=== PATIENT | male | born 1950 | race Caucasian/White ===

== ENCOUNTER 2018-08-15 16:14 | Emergency (ER) | payer MEDICARE, OTHER ==
[~2018-08-15] VITALS: Ht 172.7 cm; Wt 91.0 kg
[~2018-08-15 16:14] MED LIST: ACET-1008 PO; AMOX-580 PO; ASPI-611 PO; CHLO25TA11 PO; CHOL100046 PO; INSU100V9 SQ; IPRA4AER IH; LISI10TA4 PO; OMEG1CAP13 PO; OXYC-150 PO; ROSU20TA PO; TRAZ-219 PO; alb
[2018-08-15 17:09] LABS: ALANINE AMINOTRANSFERASE 32 U/L (12-78); ALBUMIN 3.1 G/DL (3.4-5.0); ALBUMIN/GLOBULIN RATIO 0.8 (1.1-1.5); ALKALINE PHOSPHATASE 103 IU/L (46-116); ANION GAP 8 (8-16); ASPARTATE AMINO TRANSFERASE 24 U/L (10-37); BASOPHILS % (AUTO) 0 % (0-1); BILIRUBIN,TOTAL 1.7 MG/DL (0.1-1.0); BLOOD UREA NITROGEN 17 MG/DL (7-18); BUN/CREATININE RATIO 12.8 (5.4-32.0); CALCIUM 8.3 MG/DL (8.5-10.1); CHLORIDE 104 MMOL/L (99-107); CREATININE 1.33 MG/DL (0.60-1.10); EOSINOPHILS # (AUTO) 1.5 X10'3 (0-0.9); EOSINOPHILS % (AUTO) 12.9 % (0-6); GLUCOSE 277 MG/DL (70-104); HEMATOCRIT 48.8 % (42.0-52.0); HEMOGLOBIN 16.5 g/dl (14.0-17.9); LYMPHOCYTES # (AUTO) 2.7 X10'3 (1.1-4.8); LYMPHOCYTES % (AUTO) 22.8 % (21-51); MEAN CORPUSCULAR HEMOGLOBIN 32.4 PG (27.0-31.0); MEAN CORPUSCULAR HGB CONC 33.8 % (33.0-36.5); MEAN CORPUSCULAR VOLUME 95.9 FL (78-98); MEAN PLATELET VOLUME 8.5 FL (7.4-10.4); MONOCYTES # (AUTO) 0.6 X10'3 (0-0.9); MONOCYTES % (AUTO) 4.8 % (2-12); NEUTROPHILS % (AUTO) 59.5 % (42-75); PLATELET COUNT 180 X10'3 (140-440); POTASSIUM 5.1 MMOL/L (3.5-5.1); RED BLOOD COUNT 5.08 X10'6 (4.70-6.10); SODIUM 141 MMOL/L (135-145); TOTAL CARBON DIOXIDE 29.1 MMOL/L (24-32); TOTAL PROTEIN 6.9 G/DL (6.4-8.2); WHITE BLOOD COUNT 11.8 X10'3 (4.5-11.0); eGFR 53 ML/MIN
[2018-08-15 17:22] LABS: PROTHROMBIN TIME 10.7 SECONDS (9.0-12.0)
[2018-08-15 18:58] LABS: CLARITY,URINE CLEAR (Clear); COLOR,URINE YELLOW (Yellow); GLUCOSE, URINE 250 mg/dl (Neg); KETONES,URINE NEGATIVE (Neg); LEUKOCYTE ESTERASE ,URINE NEGATIVE (Neg); NITRITES, URINE NEGATIVE (Neg); OCCULT BLOOD,URINE NEGATIVE (Neg); PH,URINE 5.5 (4.8-8.0); PROTEIN,URINE TRACE mg/dl (Neg); UROBILINOGEN,URINE 0.2 E.U/dL (0.2-1.0)
[2018-08-15 19:19] LABS: UA COLLECTION TYPE CLN CATCH MIDSTREAM
[2018-08-15 19:21] LABS: BACTERIA,URINE FEW /HPF (Neg); MUCUS STRANDS FEW /LPF (Neg); RBC,URINE 0-2 /HPF (0-2); SQUAMOUS EPITHELIAL CELL,UR FEW /LPF (FEW); WBC,URINE 0-4 /HPF (0-4)
[2018-08-15] MEDS ORDERED: ONDA8TAB6 PO (20:26)
[2018-08-15] MEDS ORDERED: OMEP20CA10 PO (20:32)
[2018-08-15] MEDS ORDERED: ondansetron/PF 4mg/2ml inj IV ONE (20:35)
[2018-08-15 20:44] VITALS: BP 131/79
== END 2018-08-15 20:48 | disposition home or self-care (01) ==
LOC: ER 16:15
DX: R10.13 Epigastric pain (principal); R11.2 Nausea with vomiting, unspecified; I25.10 Atherosclerotic heart disease of native coronary artery without angina pectoris; I10 Essential (primary) hypertension; J44.9 Chronic obstructive pulmonary disease, unspecified; E11.9 Type 2 diabetes mellitus without complications; F32.9 Major depressive disorder, single episode, unspecified; E78.00 Pure hypercholesterolemia, unspecified; G47.30 Sleep apnea, unspecified; G89.29 Other chronic pain; Z95.1 Presence of aortocoronary bypass graft; Z88.6 Allergy status to analgesic agent; Z79.82 Long term (current) use of aspirin; Z79.01 Long term (current) use of anticoagulants; Z79.899 Other long term (current) drug therapy
CPT/HCPCS: 36415; 76700; 80053; 81001; 85025; 85610; 96374; 99285; J2405

== ENCOUNTER 2020-04-05 20:53 | Emergency (ER) | payer OTHER, MEDICARE ==
[~2020-04-05] VITALS: Ht 172.7 cm; Wt 85.0 kg
[~2020-04-05 20:53] MED LIST changes: +OMEP20CA15 PO; +ONDA8TAB6 PO; -ROSU20TA PO; +ROSU20TA2 PO; -TRAZ-219 PO; +TRAZ-256 PO
[2020-04-05 21:02] VITALS: BP 143/81
[2020-04-05 21:21] LABS: BASOPHILS # (AUTO) 0.1 X10'3 (0-0.2); MONOCYTES # (AUTO) 0.7 X10'3 (0-0.9)
[2020-04-05 21:23] LABS: BASOPHILS % (AUTO) 0.5 % (0-1); EOSINOPHILS # (AUTO) 1.1 X10'3 (0-0.9); EOSINOPHILS % (AUTO) 7.4 % (0-6); HEMATOCRIT 48.5 % (42.0-52.0); HEMOGLOBIN 16.2 g/dl (14.0-17.9); LYMPHOCYTES # (AUTO) 3.2 X10'3 (1.1-4.8); LYMPHOCYTES % (AUTO) 22.1 % (21-51); MEAN CORPUSCULAR HEMOGLOBIN 32.4 PG (27.0-31.0); MEAN CORPUSCULAR HGB CONC 33.3 g/dL (33.0-36.5); MEAN CORPUSCULAR VOLUME 97.4 FL (78-98); MEAN PLATELET VOLUME 8.8 FL (7.4-10.4); MONOCYTES % (AUTO) 4.8 % (2-12); NEUTROPHILS # (AUTO) 9.4 X10'3 (1.8-7.7); NEUTROPHILS % (AUTO) 65.2 % (42-75); PLATELET COUNT 167 X10'3 (140-440); RED BLOOD COUNT 4.98 X10'6 (4.70-6.10); RED CELL DISTRIBUTION WIDTH 13.4 % (11.5-14.5); WHITE BLOOD COUNT 14.5 X10'3 (4.5-11.0)
[2020-04-05 21:40] LABS: ALANINE AMINOTRANSFERASE 31 U/L (12-78); ALBUMIN 3.2 G/DL (3.4-5.0); ALBUMIN/GLOBULIN RATIO 0.8 (1.1-1.5); ALKALINE PHOSPHATASE 101 IU/L (46-116); ANION GAP 8 (8-16); ASPARTATE AMINO TRANSFERASE 26 U/L (10-37); BILIRUBIN,TOTAL 1.2 MG/DL (0.1-1.0); BLOOD UREA NITROGEN 14 MG/DL (7-18); BUN/CREATININE RATIO 10.3 (5.4-32.0); CALCIUM 8.8 MG/DL (8.5-10.1); CHLORIDE 110 MMOL/L (99-107); CREATININE 1.36 MG/DL (0.60-1.10); GLUCOSE 170 MG/DL (70-104); LIPASE 102 U/L (73-393); POTASSIUM 4.5 MMOL/L (3.5-5.1); SODIUM 144 MMOL/L (135-145); TOTAL CARBON DIOXIDE 25.9 MMOL/L (24-32); TOTAL PROTEIN 7.3 G/DL (6.4-8.2); eGFR 52 ML/MIN
[2020-04-05 21:43] LABS: CLARITY,URINE CLEAR (Clear); COLOR,URINE YELLOW (Yellow); GLUCOSE, URINE >=1000 mg/dl (Neg); KETONES,URINE NEGATIVE (Neg); LEUKOCYTE ESTERASE ,URINE NEGATIVE (Neg); NITRITES, URINE NEGATIVE (Neg); OCCULT BLOOD,URINE NEGATIVE (Neg); PROTEIN,URINE NEGATIVE (Neg); UROBILINOGEN,URINE 0.2 E.U/dL (0.2-1.0)
[2020-04-05 21:53] LABS: UA COLLECTION TYPE CLN CATCH MIDSTREAM
[2020-04-05 21:54] LABS: BACTERIA,URINE NONE SEEN /HPF (Neg); RBC,URINE NONE SEEN /HPF (0-2); SQUAMOUS EPITHELIAL CELL,UR NONE SEEN /LPF (FEW); WBC,URINE NONE SEEN /HPF (0-4)
[2020-04-05] MEDS ORDERED: piperacillin/tazo 3.375gm/50ml 50 ML IV ONE (22:10)
[2020-04-05] MEDS ORDERED: fentaNYL/PF 50MCG/1 ML 2ML syringe IV ONE (22:10)
[2020-04-05] MEDS ORDERED: normal saline 1000ML IV soln IVB ONE (22:10)
[2020-04-05] MEDS ORDERED: ondansetron/PF 4mg/2ml inj IV ONE (22:10)
--- NOTE | 2020-04-05 22:16 | NUR ---
pt going to CT
[2020-04-05] MEDS ORDERED: METR-159 PO (23:07)
[2020-04-05] MEDS ORDERED: ONDA4TAB12 PO (23:07)
[2020-04-05] MEDS ORDERED: metoclopramide 5 mg/ml inj IV ONE (23:50)
== END 2020-04-05 23:35 | disposition home or self-care (01) ==
LOC: ER 20:54
DX: R10.30 Lower abdominal pain, unspecified (principal); R11.2 Nausea with vomiting, unspecified; R19.7 Diarrhea, unspecified; I25.10 Atherosclerotic heart disease of native coronary artery without angina pectoris; E78.00 Pure hypercholesterolemia, unspecified; I10 Essential (primary) hypertension; J44.9 Chronic obstructive pulmonary disease, unspecified; G47.30 Sleep apnea, unspecified; E11.9 Type 2 diabetes mellitus without complications; G89.29 Other chronic pain; F32.9 Major depressive disorder, single episode, unspecified; F17.210 Nicotine dependence, cigarettes, uncomplicated; Z95.1 Presence of aortocoronary bypass graft; Z98.890 Other specified postprocedural states; Z88.5 Allergy status to narcotic agent; Z79.82 Long term (current) use of aspirin; Z79.4 Long term (current) use of insulin; Z79.899 Other long term (current) drug therapy
CPT/HCPCS: 36415; 74176; 80053; 81001; 83605; 83690; 85025; 96365; 96375; 99284; J2405; J2543; J3010; J7030

== ENCOUNTER 2020-10-16 10:37 | Day surgery (SDC) | payer MEDICARE, OTHER ==
[~2020-10-16] VITALS: Ht 172.7 cm; Wt 88.0 kg
[2020-10-16] VITALS (8 sets, daily range): BP systolic 116–167; BP diastolic 66–91
[~2020-10-16 10:37] MED LIST changes: +ONDA4TAB12 PO
[2020-10-16] MEDS ORDERED: CLOP75TA15 PO (11:18)
[2020-10-16] MEDS ORDERED: normal saline 1000ml 1,000 ML IV SCH ×2 (11:35→16:55)
[2020-10-16 11:51] LABS: BASOPHILS % (AUTO) 0.4 % (0-1); EOSINOPHILS # (AUTO) 0.2 X10'3 (0-0.9); EOSINOPHILS % (AUTO) 1.6 % (0-6); HEMATOCRIT 42.5 % (42.0-52.0); HEMOGLOBIN 14.7 g/dl (14.0-17.9); LYMPHOCYTES # (AUTO) 2.6 X10'3 (1.1-4.8); MEAN CORPUSCULAR HEMOGLOBIN 33.1 PG (27.0-31.0); MEAN CORPUSCULAR HGB CONC 34.7 g/dL (33.0-36.5); MEAN CORPUSCULAR VOLUME 95.4 FL (78-98); MEAN PLATELET VOLUME 7.8 FL (7.4-10.4); MONOCYTES # (AUTO) 0.6 X10'3 (0-0.9); MONOCYTES % (AUTO) 5.3 % (2-12); NEUTROPHILS # (AUTO) 7.1 X10'3 (1.8-7.7); NEUTROPHILS % (AUTO) 67.7 % (42-75); PLATELET COUNT 217 X10'3 (140-440); RED BLOOD COUNT 4.45 X10'6 (4.70-6.10); WHITE BLOOD COUNT 10.5 X10'3 (4.5-11.0)
[2020-10-16 11:52] LABS: ALBUMIN 3.2 G/DL (3.4-5.0); ANION GAP 7 (8-16); BLOOD UREA NITROGEN 21 MG/DL (7-18); BUN/CREATININE RATIO 15.1 (5.4-32.0); CALCIUM 9.3 MG/DL (8.5-10.1); CHLORIDE 102 MMOL/L (99-107); CREATININE 1.39 MG/DL (0.60-1.10); GLUCOSE 368 MG/DL (70-104); POTASSIUM 4.8 MMOL/L (3.5-5.1); SODIUM 138 MMOL/L (135-145); TOTAL CARBON DIOXIDE 29.2 MMOL/L (24-32); eGFR 51 ML/MIN
[2020-10-16 11:59] LABS: PARTIAL THROMBOPLASTIN TIME 28 SECONDS (22-32)
[2020-10-16] MEDS ORDERED: fentaNYL/PF 50MCG/1 ML 2ML syringe ONE ×2 (14:26→16:25)
[2020-10-16] MEDS ORDERED: heparin 1,000 UNITS/NS 500ml 500 ML ONE ×2 (14:26→15:43)
[2020-10-16] MEDS ORDERED: LIDOcaine 1%/PF 5ML 10 MG/ML VIAL ONE (14:26)
[2020-10-16] MEDS ORDERED: midazolam 2 mg/2 ml injection ONE ×3 (14:26→16:24)
[2020-10-16] MEDS ORDERED: iohexol 300mg/ml 100ml inj. ONE ×2 (14:26→15:43)
[2020-10-16] MEDS ORDERED: heparin 1,000unit/ml 10ml vial 10 ML ONE (15:20)
== END 2020-10-16 19:50 | disposition home or self-care (01) ==
LOC: SSTAY O 10:37
PROVIDERS: ATTEND Radiology Vascular & Interventional Radiology
DX: I70.213 Atherosclerosis of native arteries of extremities with intermittent claudication, bilateral legs (principal); M79.605 Pain in left leg; M79.604 Pain in right leg; Z79.899 Other long term (current) drug therapy; Z79.01 Long term (current) use of anticoagulants
CPT/HCPCS: 36246; 36415; 75710; 76937; 80048; 82948; 85025; 85347; 85610; 85730; 87635; C1760; C1769; C1887; C1894; C9803; G0269; J1644; J2250; J3010; Q9967; 99152; 99153; A6213

== ENCOUNTER 2020-10-26 09:31 | Emergency (ER) | payer OTHER, MEDICARE ==
[~2020-10-26] VITALS: Ht 172.7 cm; Wt 88.2 kg
[~2020-10-26 09:31] MED LIST changes: -ACET-1008 PO; -AMOX-580 PO; -ASPI-611 PO; -CHLO25TA11 PO; +CLOP75TA15 PO; -LISI10TA4 PO; -OMEP20CA15 PO; -ONDA4TAB12 PO; -ONDA8TAB6 PO; -TRAZ-256 PO; -alb
[2020-10-26] MEDS ORDERED: TETanus/Pertussis (Acell)/Diphther VAC/PF (Tdap-Adult) 0.5ml syringe IMVAC ONE (10:25)
[2020-10-26 10:54] LABS: BASOPHILS # (AUTO) 0.1 X10'3 (0-0.2); BASOPHILS % (AUTO) 0.4 % (0-1); EOSINOPHILS # (AUTO) 0.2 X10'3 (0-0.9); EOSINOPHILS % (AUTO) 1.1 % (0-6); HEMATOCRIT 39.6 % (42.0-52.0); HEMOGLOBIN 13.5 g/dl (14.0-17.9); LYMPHOCYTES # (AUTO) 2.2 X10'3 (1.1-4.8); LYMPHOCYTES % (AUTO) 15.6 % (21-51); MEAN CORPUSCULAR HEMOGLOBIN 32.3 PG (27.0-31.0); MEAN PLATELET VOLUME 7.5 FL (7.4-10.4); MONOCYTES # (AUTO) 0.6 X10'3 (0-0.9); MONOCYTES % (AUTO) 4.4 % (2-12); NEUTROPHILS % (AUTO) 78.5 % (42-75); PLATELET COUNT 342 X10'3 (140-440); RED BLOOD COUNT 4.17 X10'6 (4.70-6.10); RED CELL DISTRIBUTION WIDTH 13.3 % (11.5-14.5)
[2020-10-26 11:03] LABS: ALANINE AMINOTRANSFERASE 25 U/L (12-78); ALBUMIN/GLOBULIN RATIO 0.6 (1.1-1.5); ALKALINE PHOSPHATASE 104 IU/L (46-116); ANION GAP 9 (8-16); ASPARTATE AMINO TRANSFERASE 18 U/L (10-37); BILIRUBIN,TOTAL 0.9 MG/DL (0.1-1.0); BLOOD UREA NITROGEN 15 MG/DL (7-18); CALCIUM 9.5 MG/DL (8.5-10.1); CHLORIDE 102 MMOL/L (99-107); CREATININE 1.25 MG/DL (0.60-1.10); GLUCOSE 202 MG/DL (70-104); POTASSIUM 5.5 MMOL/L (3.5-5.1); SODIUM 139 MMOL/L (135-145); TOTAL CARBON DIOXIDE 27.6 MMOL/L (24-32); TOTAL PROTEIN 7.9 G/DL (6.4-8.2); eGFR 57 ML/MIN
[2020-10-26] MEDS ORDERED: iohexol 350MG/ML 100ml bottle IV ONE (11:35)
[2020-10-26] MEDS ORDERED: oxyCODONE/APAP 5-325mg tablet PO ONE (14:35)
[2020-10-26 15:00] VITALS: BP 156/108
[2020-10-26] MEDS ORDERED: HYDR-4383 PO (15:54)
[2020-10-26] MEDS ORDERED: ondansetron 4mg rapidly disintigrating tab PO ONE (16:05)
== END 2020-10-26 16:34 | disposition home or self-care (01) ==
LOC: ER 09:31
DX: M79.675 Pain in left toe(s) (principal); I25.10 Atherosclerotic heart disease of native coronary artery without angina pectoris; E78.00 Pure hypercholesterolemia, unspecified; I10 Essential (primary) hypertension; E11.9 Type 2 diabetes mellitus without complications; G89.29 Other chronic pain; M54.9 Dorsalgia, unspecified; F32.9 Major depressive disorder, single episode, unspecified; Z95.1 Presence of aortocoronary bypass graft; Z88.5 Allergy status to narcotic agent; Z79.899 Other long term (current) drug therapy; Z79.84 Long term (current) use of oral hypoglycemic drugs
CPT/HCPCS: 36415; 73630; 73706; 80053; 85025; 90471; 90715; 99285; Q9967

== ENCOUNTER 2020-10-28 11:57 | Day surgery (SDC) | payer OTHER ==
[2020-10-28] VITALS (9 sets, daily range): BP systolic 106–148; BP diastolic 63–83
[~2020-10-28] VITALS: Ht 172.7 cm; Wt 85.7 kg
[~2020-10-28 11:57] MED LIST changes: +HYDR-4383 PO
[2020-10-28 13:19] LABS: BASOPHILS # (AUTO) 0.1 X10'3 (0-0.2); BASOPHILS % (AUTO) 0.5 % (0-1); EOSINOPHILS # (AUTO) 0.2 X10'3 (0-0.9); EOSINOPHILS % (AUTO) 1.7 % (0-6); HEMATOCRIT 40.5 % (42.0-52.0); LYMPHOCYTES # (AUTO) 2.8 X10'3 (1.1-4.8); LYMPHOCYTES % (AUTO) 20.1 % (21-51); MEAN CORPUSCULAR HEMOGLOBIN 32.5 PG (27.0-31.0); MEAN CORPUSCULAR HGB CONC 34.6 g/dL (33.0-36.5); MEAN CORPUSCULAR VOLUME 93.8 FL (78-98); MEAN PLATELET VOLUME 7.4 FL (7.4-10.4); MONOCYTES # (AUTO) 0.8 X10'3 (0-0.9); MONOCYTES % (AUTO) 5.6 % (2-12); NEUTROPHILS # (AUTO) 9.9 X10'3 (1.8-7.7); NEUTROPHILS % (AUTO) 72.1 % (42-75); PLATELET COUNT 412 X10'3 (140-440); RED BLOOD COUNT 4.31 X10'6 (4.70-6.10); RED CELL DISTRIBUTION WIDTH 12.8 % (11.5-14.5); WHITE BLOOD COUNT 13.7 X10'3 (4.5-11.0)
[2020-10-28 13:42] LABS: ALBUMIN 3.4 G/DL (3.4-5.0); ANION GAP 12 (8-16); BLOOD UREA NITROGEN 24 MG/DL (7-18); CALCIUM 9.7 MG/DL (8.5-10.1); CHLORIDE 103 MMOL/L (99-107); GLUCOSE 118 MG/DL (70-104); POTASSIUM 4.3 MMOL/L (3.5-5.1); SODIUM 142 MMOL/L (135-145); TOTAL CARBON DIOXIDE 26.6 MMOL/L (24-32); eGFR 46 ML/MIN
[2020-10-28] MEDS ORDERED: LISI10TA4 PO (13:58)
[2020-10-28] MEDS ORDERED: NICO-731 TOP (13:58)
[2020-10-28] MEDS ORDERED: fentaNYL/PF 50MCG/1 ML 2ML syringe IV ONE (14:30)
[2020-10-28] MEDS ORDERED: iohexol 300mg/ml 100ml inj. ONE ×2 (14:47→17:11)
[2020-10-28] MEDS ORDERED: LIDOcaine 1%/PF 5ML 10 MG/ML VIAL ONE ×2 (14:47→19:14)
[2020-10-28] MEDS ORDERED: fentaNYL/PF 50MCG/1 ML 2ML syringe ONE ×5 (14:47→19:03)
[2020-10-28] MEDS ORDERED: midazolam 2 mg/2 ml injection ONE ×5 (14:47→16:54)
[2020-10-28] MEDS ORDERED: heparin 1,000 UNITS/NS 500ml 500 ML ONE ×3 (14:47→18:45)
[2020-10-28] MEDS ORDERED: heparin 1,000unit/ml 10ml vial 10 ML ONE ×2 (15:45→18:35)
[2020-10-28] MEDS ORDERED: diphenhydrAMINE 50 mg/ml inj ONE (16:10)
[2020-10-28] MEDS ORDERED: normal saline 1000ml 1,000 ML IV SCH (19:55)
--- NOTE | 2020-10-28 20:00 | NUR ---
Patient in room [facility] [id number]. I have received report from Kyler MUNIZ and Huey MUNIZ and had the opportunity to ask questions and assume patient care. Pt transferred from Short stay. VSS
[2020-10-28] MEDS ORDERED: HYDROcodone/acetaminophen 5mg/325mg tablet PO PRN (22:05)
--- NOTE | 2020-10-28 23:00 | NUR ---
Pt was transferred from short stay. arrived to the unit and was to lay flat for 3 hours then be discharged home. Pt was discharged home at 2300. VSS, right groin soft and non tender. IV was removed, cannula intact. All belongings went home with the pt. discharge instructions were reviewed with the pt, signed copied and placed in pt chart. Pt was brought down in a wheel chair and left in a private vehicle with family/friend.
== END 2020-10-28 23:00 | disposition home or self-care (01) ==
LOC: SSTAY O 11:57 → SUR 3N 20:15 → SSTAY O 23:00
PROVIDERS: ATTEND Radiology Vascular & Interventional Radiology
DX: E11.51 Type 2 diabetes mellitus with diabetic peripheral angiopathy without gangrene (principal); I70.92 Chronic total occlusion of artery of the extremities; I70.74 Atherosclerosis of other type of bypass graft(s) of the left leg with ulceration; E11.69 Type 2 diabetes mellitus with other specified complication; M86.672 Other chronic osteomyelitis, left ankle and foot; M79.662 Pain in left lower leg; Z88.6 Allergy status to analgesic agent; Z88.8 Allergy status to other drugs, medicaments and biological substances; Z79.899 Other long term (current) drug therapy; Z79.01 Long term (current) use of anticoagulants; Z82.49 Family history of ischemic heart disease and other diseases of the circulatory system; Z83.3 Family history of diabetes mellitus; F17.210 Nicotine dependence, cigarettes, uncomplicated; Z72.89 Other problems related to lifestyle
CPT/HCPCS: 36415; 37220; 37227; 37231; 80048; 82948; 85025; 85347; C1725; C1757; C1760; C1769; C1874; C1876; C1894; J1200; J1644; J2250; J3010; Q9967; 99152; 99153; G0378

== ENCOUNTER → 2020-12-29 | Outpatient (CLI) | payer OTHER, MEDICARE ==
[~2020-12-29] MED LIST changes: +ATOR20TA66 PO; +HYDR-3964 PO; -HYDR-4383 PO; +INSU100V5 SQ; +LEVO750T46 PO; +LIDOcaine 2% 5ml jelly ONE; +LISI10TA27 PO; +METR-159 PO; -OXYC-150 PO; +TIOT4MIS3 PO
[2020-12-29 12:11] LABS: BASOPHILS # (AUTO) 0.1 X10'3 (0-0.2); BASOPHILS % (AUTO) 0.7 % (0-1); EOSINOPHILS % (AUTO) 8.6 % (0-6); HEMATOCRIT 39.3 % (42.0-52.0); HEMOGLOBIN 12.9 g/dl (14.0-17.9); LYMPHOCYTES % (AUTO) 27.2 % (21-51); MEAN CORPUSCULAR HEMOGLOBIN 30.8 PG (27.0-31.0); MEAN CORPUSCULAR HGB CONC 32.7 g/dL (33.0-36.5); MEAN CORPUSCULAR VOLUME 94.1 FL (78-98); MEAN PLATELET VOLUME 7.9 FL (7.4-10.4); MONOCYTES # (AUTO) 0.7 X10'3 (0-0.9); MONOCYTES % (AUTO) 5.9 % (2-12); NEUTROPHILS # (AUTO) 6.4 X10'3 (1.8-7.7); NEUTROPHILS % (AUTO) 57.6 % (42-75); PLATELET COUNT 238 X10'3 (140-440); RED BLOOD COUNT 4.18 X10'6 (4.70-6.10); RED CELL DISTRIBUTION WIDTH 14.2 % (11.5-14.5); WHITE BLOOD COUNT 11.1 X10'3 (4.5-11.0)
[2020-12-29 12:24] LABS: HEMOGLOBIN A1C 6.7 % (4.5-6.2)
[2020-12-29 12:31] LABS: ALANINE AMINOTRANSFERASE 38 U/L (12-78); ALBUMIN 3.2 G/DL (3.4-5.0); ALBUMIN/GLOBULIN RATIO 0.7 (1.1-1.5); ALKALINE PHOSPHATASE 126 IU/L (46-116); ANION GAP 8 (8-16); ASPARTATE AMINO TRANSFERASE 30 U/L (10-37); BILIRUBIN,TOTAL 0.6 MG/DL (0.1-1.0); BLOOD UREA NITROGEN 14 MG/DL (7-18); BUN/CREATININE RATIO 13.5 (5.4-32.0); C-REACTIVE PROTEIN 0.46 MG/DL (0.0-0.5); CALCIUM 9.4 MG/DL (8.5-10.1); CHLORIDE 107 MMOL/L (99-107); CREATININE 1.04 MG/DL (0.60-1.10); GLUCOSE 123 MG/DL (70-104); POTASSIUM 4.5 MMOL/L (3.5-5.1); SODIUM 144 MMOL/L (135-145); TOTAL CARBON DIOXIDE 28.6 MMOL/L (24-32); TOTAL PROTEIN 7.8 G/DL (6.4-8.2); eGFR 71 ML/MIN
== END | disposition home or self-care (01) ==
LOC: WOUND CARE 09:38
PROVIDERS: ATTEND Nurse Practitioner
DX: T81.89XA Other complications of procedures, not elsewhere classified, initial encounter (principal); I70.262 Atherosclerosis of native arteries of extremities with gangrene, left leg; E11.52 Type 2 diabetes mellitus with diabetic peripheral angiopathy with gangrene; E11.621 Type 2 diabetes mellitus with foot ulcer; L97.524 Non-pressure chronic ulcer of other part of left foot with necrosis of bone; J44.9 Chronic obstructive pulmonary disease, unspecified; E11.36 Type 2 diabetes mellitus with diabetic cataract; E11.39 Type 2 diabetes mellitus with other diabetic ophthalmic complication; H42 Glaucoma in diseases classified elsewhere; H93.19 Tinnitus, unspecified ear; E78.5 Hyperlipidemia, unspecified; I10 Essential (primary) hypertension; K21.9 Gastro-esophageal reflux disease without esophagitis; F32.9 Major depressive disorder, single episode, unspecified; F43.10 Post-traumatic stress disorder, unspecified; F12.90 Cannabis use, unspecified, uncomplicated; Z87.891 Personal history of nicotine dependence; Z86.14 Personal history of Methicillin resistant Staphylococcus aureus infection; Y92.238 Other place in hospital as the place of occurrence of the external cause; Y83.8 Other surgical procedures as the cause of abnormal reaction of the patient, or of later complication, without mention of misadventure at the time of the procedure
CPT/HCPCS: 11042; 11045; 36415; 80053; 83036; 85025; 85651; 86140; 87070; 87075; 97597

== ENCOUNTER → 2023-04-11 | Outpatient (CLI) | payer OTHER, MEDICARE ==
[~2023-04-11] MED LIST changes: +BENZ-111 PO; -HYDR-3964 PO; -INSU100V9 SQ; -IPRA4AER IH; +LACT1CAP26 PO; -LEVO750T46 PO; -LIDOcaine 2% 5ml jelly ONE; -METR-159 PO; +OMEG-45 PO; -OMEG1CAP13 PO; +PANT40TA54 PO; -ROSU20TA2 PO; +TAM75C PO
[2023-04-11 17:43] LABS: BASOPHILS # (AUTO) 0.1 X10'3 (0-0.2); BASOPHILS % (AUTO) 1.1 % (0-1); EOSINOPHILS # (AUTO) 1.1 X10'3 (0-0.9); EOSINOPHILS % (AUTO) 9.4 % (0-6); HEMATOCRIT 35.9 % (42.0-52.0); HEMOGLOBIN 11.4 g/dl (14.0-17.9); LYMPHOCYTES # (AUTO) 3.6 X10'3 (1.1-4.8); LYMPHOCYTES % (AUTO) 30.6 % (21-51); MEAN CORPUSCULAR HGB CONC 31.6 g/dL (33.0-36.5); MEAN CORPUSCULAR VOLUME 91.7 FL (78-98); MEAN PLATELET VOLUME 7.6 FL (7.4-10.4); MONOCYTES # (AUTO) 0.7 X10'3 (0-0.9); MONOCYTES % (AUTO) 6.2 % (2-12); NEUTROPHILS # (AUTO) 6.2 X10'3 (1.8-7.7); NEUTROPHILS % (AUTO) 52.7 % (42-75); PLATELET COUNT 302 X10'3 (140-440); RED BLOOD COUNT 3.92 X10'6 (4.70-6.10); RED CELL DISTRIBUTION WIDTH 15.9 % (11.5-14.5); WHITE BLOOD COUNT 11.7 X10'3 (4.5-11.0)
[2023-04-11 18:07] LABS: ALANINE AMINOTRANSFERASE 30 U/L (12-78); ALBUMIN 2.9 G/DL (3.4-5.0); ALBUMIN/GLOBULIN RATIO 0.7 (1.1-1.5); ALKALINE PHOSPHATASE 117 IU/L (46-116); ANION GAP 12 (8-16); ASPARTATE AMINO TRANSFERASE 28 U/L (10-37); BILIRUBIN,TOTAL 0.3 MG/DL (0.1-1.0); BLOOD UREA NITROGEN 16 MG/DL (7-18); BUN/CREATININE RATIO 12.6 (10.0-20.0); C-REACTIVE PROTEIN 0.53 MG/DL (0.0-0.5); CALCIUM 9.2 MG/DL (8.5-10.1); CHLORIDE 105 MMOL/L (99-107); CREATININE 1.27 MG/DL (0.60-1.10); GLUCOSE 62 MG/DL (70-104); POTASSIUM 4.5 MMOL/L (3.5-5.1); SODIUM 142 MMOL/L (135-145); TOTAL CARBON DIOXIDE 25.5 MMOL/L (24-32); TOTAL PROTEIN 6.9 G/DL (6.4-8.2); eGFR 56 ML/MIN
== END | disposition home or self-care (01) ==
LOC: LAB SPEC 17:31
PROVIDERS: ATTEND Family Medicine
DX: M86.9 Osteomyelitis, unspecified (principal); I70.8 Atherosclerosis of other arteries
CPT/HCPCS: 36415; 80053; 85025; 85651; 86140